=== PATIENT | male | born 1955 | race Caucasian/White ===

== ENCOUNTER → 2022-05-08 11:02 | Outpatient (BNVA) | payer MEDICARE, BC, SELFPAY | PROVIDERS: PCP Internal Medicine; Visit Provider Specialist | DX: G40.309 Generalized idiopathic epilepsy and epileptic syndromes, not intractable, without status epilepticus (principal); G43.711 Chronic migraine without aura, intractable, with status migrainosus; S06.5XAS Traumatic subdural hemorrhage with loss of consciousness status unknown, sequela; W22.8XXS Striking against or struck by other objects, sequela | CPT/HCPCS: 99204 ==

== ENCOUNTER 2022-06-06 10:06 | Outpatient (CLI) | payer MEDICARE, BC, SELFPAY ==
--- NOTE | 2022-06-06 11:00 | MR_ITS ---
WS: [id number] MRI HEAD WITHOUT CONTRAST TECHNIQUE: Sagittal T1, T2 axial, T2 axial FLAIR, axial and coronal T1 images, axial susceptibility w eighted imaging, axial diffusion weighted images, and coronal T2 images were obtained. CLINICAL INFORMATION: G40.909 - Epilepsy, unspecified, not intractable, without... COMPARISON: None. FINDINGS: No evidence of restricted diffusion to suggest acute ischemia. Ventricular system and basal cisterns are patent. Chronic encephalomalacia and gliosis in the RIGHT parietal and occipital lobes with assoc iated hemosiderin. Ex vacuo dilatation of the RIGHT occipital horn. This is likely due to prior traum a or hemorrhagic infarct. Associated hemosiderin in this area. Normal posterior fossa. Normal vascular flow voids at the skull base. No extra-axial fluid collection s. Mild mucosal thickening LEFT maxillary sinus and ethmoid air cells. Partial opacification of the m astoid air cells bilaterally. Normal optic chiasm and pituitary infundibulum. Temporal lobes and hippocampal formations are normal in appearance. MR/MR head wo con* [id number] IMPRESSION: 1. No evidence of restricted diffusion to suggest acute ischemia. 2. Encephalomalacia and gliosis in the RIGHT parietal lobe with associated hem osiderin likely due to prior trauma or hemorrhagic infarct. Ex vacuo dilatation RIGHT posterior lateral ventricle and adjacent RIGHT occipital horn. 3. No other areas of hemosiderin. 4. Mild parenchymal volume loss. 5. Moderate mucosal thickening LEFT maxillary sinus. Partial opacification mas toid air cells bilaterally. 6. Temporal lobes and hippocampal formations are normal in appearance.
== END 2022-06-06 10:07 | disposition home or self-care (01) ==
LOC: RAD 10:10
PROVIDERS: PCP Internal Medicine; Visit Provider Specialist
DX: G40.909 Epilepsy, unspecified, not intractable, without status epilepticus (principal)
CPT/HCPCS: 70551

== ENCOUNTER → 2022-06-25 08:48 | Outpatient (BNVA) | payer MEDICARE, BC, SELFPAY | PROVIDERS: PCP Internal Medicine; Visit Provider Specialist | DX: G40.309 Generalized idiopathic epilepsy and epileptic syndromes, not intractable, without status epilepticus (principal); G93.89 Other specified disorders of brain | CPT/HCPCS: 99214 ==